=== PATIENT | male | born 1970 | race Hispanic/Latino ===

== ENCOUNTER 2018-03-26 15:31 | Emergency (ER) | payer SELFPAY ==
--- NOTE | 2018-03-26 17:07 | RAD ---
LEFT SHOULDER THREE VIEWS: History: Shoulder pain. FINDINGS: AC joint is unremarkable. There are minimal arthritic changes of the glenohumeral joint space is seen . There is no fracture. IMPRESSION: Minimal arthritic change of the shoulder. POS: H
== END 2018-03-26 17:33 | disposition home or self-care (01) ==
LOC: ERS 15:31
DX: M79.18 Myalgia, other site (principal); E11.9 Type 2 diabetes mellitus without complications; I10 Essential (primary) hypertension

== ENCOUNTER 2018-05-05 19:41 | Emergency (ER) | payer SELFPAY | END 2018-05-05 20:47 | disposition home or self-care (01) | LOC: ERS 19:41 | DX: M54.14 Radiculopathy, thoracic region (principal); M62.830 Muscle spasm of back; I10 Essential (primary) hypertension; E11.9 Type 2 diabetes mellitus without complications | CPT/HCPCS: 99283 ==

== ENCOUNTER 2018-06-14 15:48 | Emergency (ER) | payer SELFPAY | END 2018-06-14 17:18 | disposition home or self-care (01) | LOC: ERS 15:48 | DX: J06.9 Acute upper respiratory infection, unspecified (principal); E11.9 Type 2 diabetes mellitus without complications; I10 Essential (primary) hypertension | CPT/HCPCS: 87804; 99283 ==